=== PATIENT | male | born 1985 | race Asian ===

== ENCOUNTER 2019-05-11 14:04 | Emergency (ER) | payer SELFPAY ==
[2019-05-11 14:59] LABS: BASOPHIL % 1.1 % (0-2); PLATELET COUNT 277 x10^3mcL (130-400)
[2019-05-11 15:10] LABS: RED CELL DISTRIBUTION WIDTH 14.6 % (11.5-14.5)
[2019-05-11 15:26] VITALS: BP 110/80
== END 2019-05-11 15:26 | disposition home or self-care (01) ==
LOC: ED 14:04
PROVIDERS: Emergency Medicine
DX: J06.9 Acute upper respiratory infection, unspecified (principal)
CPT/HCPCS: 36415; 87804; Q0092

== ENCOUNTER 2019-08-04 19:32 | Emergency (ER) | payer BC, SELFPAY ==
[~2019-08-04] VITALS: Ht 170.2 cm; Wt 79.4 kg
[2019-08-04 20:34] VITALS: BP 132/74; Ht 170.2 cm; Wt 79.4 kg
== END 2019-08-05 00:34 | disposition home or self-care (01) ==
LOC: ED 19:32
DX: B34.9 Viral infection, unspecified (principal); Z20.828 Contact with and (suspected) exposure to other viral communicable diseases
CPT/HCPCS: 87804; Q0092; U0003-CS